=== PATIENT | male | born 1995 | race Caucasian/White ===

== ENCOUNTER 2019-02-18 20:00 | Emergency (ER) | payer BC ==
[~2019-02-18] VITALS: Ht 170.2 cm; Wt 81.6 kg
[2019-02-18] MEDS ORDERED: BUPR8TAB4 SL (20:10)
[2019-02-18] MEDS ORDERED: SERT100T PO (20:10)
[2019-02-18] MEDS ORDERED: QUET50TA PO (20:10)
[2019-02-18] MEDS ORDERED: HYDR-3026 PO (20:10)
--- NOTE | 2019-02-18 20:18 | NUR ---
PATIENT WALKED INTO ER WITH [facility] STAFF MEMBER REQUESTING TO BE MEDICALLY CLEARED TO BE ADITTED TO [facility] DETOX. PATIENT HAS RASH THROUGHTOUT BODY WHICH HE STATES HE HAD SINCE .
[2019-02-18] MEDS ORDERED: NEOMY/BACITRA/POLYMYXIN B OINT UD PACKET TP ONE ×2 (20:30→20:34)
[2019-02-18] MEDS ORDERED: SILVER SULFADIAZINE 1% CREAM 50 GM TP ONE (20:30)
[2019-02-18] MEDS ORDERED: SULFAMETH/TRIMETH 800/160 MG TABLET PO ONE (20:30)
[2019-02-18] MEDS ORDERED: SULFAMETH/TRIMETH 800/160 MG TABLET ONE (20:34)
[2019-02-18] MEDS ORDERED: SILVER SULFADIAZINE 1% CREAM 25 GM TUBE TP ONE (20:34)
--- NOTE | 2019-02-18 20:47 | NUR ---
Patient discharged in stable conditon. Written and verbal after care instructions given. Patient verbalizes understanding of instructions. WALKED OUT OF ER WITH NO DISTRESS NOTED. PATIENT PICKED UP BY [facility]
[2019-02-18 20:52] VITALS: BP 110/66
== END 2019-02-18 20:53 | disposition home or self-care (01) ==
LOC: ER 20:02
DX: Q81.9 Epidermolysis bullosa, unspecified (principal); F11.10 Opioid abuse, uncomplicated; F15.10 Other stimulant abuse, uncomplicated; Z79.899 Other long term (current) drug therapy
CPT/HCPCS: A4663